=== PATIENT | male | born 1960 | race Caucasian/White ===

== ENCOUNTER 2023-08-25 17:57 | Emergency (ER) | payer OTHER ==
[2023-08-25] MEDS ORDERED: Naloxone 0.4 MG/ML SDV IVPUSH PRN (18:04)
[2023-08-25] MEDS: fentaNYL 50 MCG/ML SDV IVPUSH ONE (18:07)
[2023-08-25 18:09] LABS: BASOPHILS ABSOLUTE AUTO 0.02 K/uL (0.00-0.20); BASOPHILS PERCENT AUTO 0.3 % (0.0-2.0); EOSINOPHILS ABSOLUTE AUTO 0.05 K/uL (0.00-0.50); EOSINOPHILS PERCENT AUTO 0.7 % (0.0-5.0); HEMATOCRIT 46.7 % (39.0-49.0); HEMOGLOBIN 15.8 g/dL (13.1-16.8); LYMPHOCYTES ABSOLUTE AUTO 1.33 K/uL (0.50-3.50); LYMPHOCYTES PERCENT AUTO 17.5 % (10.0-50.0); MEAN CORPUSCULAR HGB CONC 33.8 g/dL (31.7-36.0); MEAN CORPUSCULAR VOLUME 85.7 fL (84.0-98.0); MONOCYTES ABSOLUTE AUTO 0.63 K/uL (0.00-1.00); MONOCYTES PERCENT AUTO 8.3 % (2.0-14.0); NEUTROPHILS ABSOLUTE AUTO 5.56 K/uL (1.40-7.00); NEUTROPHILS PERCENT AUTO 73.2 % (45.0-80.0); PLATELET COUNT,PLT 189 K/uL (150-350); RED BLOOD CELL COUNT 5.45 M/uL (4.33-5.41); RED CELL DISTRIBUTION WIDTH 13.4 % (11.2-14.1); WHITE BLOOD CELL COUNT,WBC 7.6 K/uL (4.0-10.2)
[2023-08-25] MEDS: Sodium Chloride 0.9% 10 ML Syringe FLUSH PRN (18:12)
[2023-08-25 18:26] LABS: ALANINE AMINOTRANSFERASE,ALT 28 U/L (12-78); ALKALINE PHOSPHATASE 93 IU/L (46-116); ANION GAP 9.6 meq/L (7-15); ASPARTATE AMNIOTRANSFERASE,AST 20 U/L (15-37); BILIRUBIN TOTAL 0.5 mg/dL (0.2-1.0); BLOOD UREA NITROGEN,BUN 21 mg/dL (7-18); CALCIUM 8.7 mg/dL (8.5-10.1); CARBON DIOXIDE,CO2 27.4 mmol/L (21.0-32.0); CHLORIDE,CL 103 mmol/L (98-107); CREATININE 1.03 mg/dL (0.51-1.17); GLUCOSE RANDOM 116 mg/dL (70-99); POTASSIUM,K 3.8 mmol/L (3.5-5.1); PROTEIN TOTAL,TP 6.9 g/dL (6.4-8.2); SODIUM,NA 140 mmol/L (136-145)
[2023-08-25 18:27] LABS: ESTIMATED GFR 81 mL/min (>=60)
[2023-08-25] MEDS: Iopamidol 612 MG/ML 100 ML Bottle IVPUSH STA (18:28)
[2023-08-25 18:42] LABS: INR 1.1 (0.9-1.1); PROTHROMBIN TIME 10.7 SEC (9.0-11.1)
[2023-08-25] MEDS ORDERED: fentaNYL 50 MCG/ML SDV IVPUSH ONE (19:15)
[2023-08-25] MEDS ORDERED: fentaNYL 50 MCG/ML SDV ONE (20:20)
== END 2023-08-25 20:48 ==
LOC: LL.ED 17:57
DX: S27.0XXA Traumatic pneumothorax, initial encounter (principal); S22.42XA Multiple fractures of ribs, left side, initial encounter for closed fracture; Z79.82 Long term (current) use of aspirin; Z79.899 Other long term (current) drug therapy; W13.8XXA Fall from, out of or through other building or structure, initial encounter; Y93.89 Activity, other specified; Y99.0 Civilian activity done for income or pay
CPT/HCPCS: 36415; 70450; 71045; 71260; 72125; 74177; 80053; 84484; 85025; 85610; 93005; 93010; 96374; 96376; 99284; 99285-25; J3010; J3490; Q9967